=== PATIENT | female | born 1990 | race Caucasian/White ===

== ENCOUNTER → 2017-01-19 | Outpatient (CLI) | payer OTHER ==
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
== END | disposition home or self-care (01) ==
LOC: CRAD 14:54
DX: M54.2 Cervicalgia (principal)
CPT/HCPCS: 72040